=== PATIENT | male | born 1990 | race Caucasian/White ===

== ENCOUNTER 2019-10-14 10:12 | Emergency (ER) | payer MEDICAID ==
[~2019-10-14] VITALS: Ht 188 cm; Wt 79.6 kg
[2019-10-14 10:20] VITALS: BP 134/87
--- NOTE | 2019-10-14 10:45 | NUR ---
N AND OFF RIGHT TESTICULAR PAIN X 6 MONTHS HEMATURIA 2 DAYS AGO DENIES TRAUMA OR INJURY NO MEDS TAKEN, PT AWAKE ,ALERT,AFIBRILE AMBULATORY ,TESTICLE NEGATIVE FOR SWELLING OR TENDERNESS. PMH: NONE MEDS: NONE NKA
--- NOTE | 2019-10-14 11:35 | NUR ---
LABS AT BEDSIDE TAKING BLOOD SAMPLE FOR EXAMINATION.
--- NOTE | 2019-10-14 11:40 | NUR ---
pt transported to ct scan via wheelchair.
[2019-10-14 11:51] LABS: BASOPHILS # (AUTO) 0.1 K/uL (0.00-0.22); BASOPHILS % (AUTO) 1.1 % (0.0-2.0); EOSINOPHILS # (AUTO) 0.2 K/uL (0-0.4); EOSINOPHILS % (AUTO) 3.1 % (0.0-4.0); HEMATOCRIT 44.2 % (36-52); HEMOGLOBIN 15.4 g/dL (12.0-18.0); LYMPHOCYTES # (AUTO) 1.7 K/uL (2.0-11.5); LYMPHOCYTES % (AUTO) 28.5 % (20.5-51.1); MEAN CORPUSCULAR HEMOGLOBIN 30 pg (27-31); MEAN CORPUSCULAR HGB CONC 35 g/dL (33-37); MEAN CORPUSCULAR VOLUME 87.2 fL (80-94); MONOCYTES # (AUTO) 0.3 K/uL (0.8-1.0); MONOCYTES % (AUTO) 4.6 % (1.7-9.3); NEUTROPHILS # (AUTO) 3.7 K/uL (1.8-7.7); NEUTROPHILS % (AUTO) 62.7 % (42.2-75.2); PLATELET COUNT (AUTO) 202 K/uL (140-450); RED BLOOD CELL COUNT(AUTO) 5.07 MIL/uL (4.20-6.10); RED CELL DISTRIBUTION WIDTH 12.9 % (11.6-13.7)
[2019-10-14 11:51] LABS: APPEARANCE,URINE CLEAR (CLEAR); BILIRUBIN,URINE NEGATIVE (NEGATIVE); BLOOD, URINE NEGATIVE (NEGATIVE); COLOR,URINE YELLOW (YELLOW); LEUKOCYTE ESTERASE ,URINE NEGATIVE (NEGATIVE); NITRITE, URINE NEGATIVE (NEGATIVE); UGLUCOSE NEGATIVE (NEGATIVE)
--- NOTE | 2019-10-14 11:52 | NUR ---
PT BACK FROM CT SCAN VIA WHEELCHAIR.
[2019-10-14 12:26] LABS: ANION GAP 13.2 (8-16); CARBON DIOXIDE 27.1 mmol/L (21-32); POTASSIUM 4.3 mmol/L (3.5-5.1)
[2019-10-14 12:27] LABS: ALBUMIN 4.2 g/dL (3.4-5.0); TOTAL BILIRUBIN 0.5 mg/dL (0.0-1.0)
[2019-10-14 13:02] VITALS: BP 127/77
--- NOTE | 2019-10-14 13:03 | NUR ---
Patient discharged with v/s stable. Written and verbal after care instructions given and explained. Patient alert, oriented and verbalized understanding of instructions. Ambulatory with steady gait. All questions addressed prior to discharge. ID band removed. Patient advised to follow up with PMD. No Rx of given. Patient educated on indication of medication including possible reaction and side effects. Opportunity to ask questions provided and answered.
== END 2019-10-14 13:03 | disposition home or self-care (01) ==
LOC: MED 10:12
DX: R31.9 Hematuria, unspecified (principal)
CPT/HCPCS: 36415; 80053; 81003; 83690; 85025; 99284

== ENCOUNTER 2021-02-13 09:32 | Emergency (ER) | payer MEDICAID, OTHER ==
[~2021-02-13] VITALS: Ht 157.5 cm; Wt 129.3 kg
[2021-02-13 09:35] VITALS: BP 141/67
--- NOTE | 2021-02-13 09:42 | NUR ---
Patient ambulated with steady gait to bed 4.
--- NOTE | 2021-02-13 09:42 | NUR ---
pt ambulated to bed 04, Dr Lopez examining pt
--- NOTE | 2021-02-13 09:45 | NUR ---
xray bedside with pt
--- NOTE | 2021-02-13 10:07 | NUR ---
30 YO M C/O LEFT FOOT PAIN S/P TRIPPING ON A MAT YESTERDAY. PAIN 10/10, SHARP AGGRAVATED BY PUTTING WEIGHT ON FOOT. DENIES NUMBNESS OR WEAKNESS. NO MEDICATIONS TAKEN. PT STATES PAIN IS FELT ON LOWER/PLANTAR AREA OF FOOT PMH: NONE MEDS: NONE NKA
[2021-02-13] MEDS ORDERED: NAPR-54 PO (10:17)
[2021-02-13 10:24] VITALS: BP 141/67
--- NOTE | 2021-02-13 10:24 | NUR ---
Patient discharged with v/s stable. Written and verbal after care instructions given and explained. Patient alert, oriented and verbalized understanding of instructions. Ambulatory with steady gait. All questions addressed prior to discharge. ID band removed. Patient advised to follow up with PMD. Rx of NAPROXEN 500 MG PO PRN FOR PAIN given. Patient educated on indication of medication including possible reaction and side effects. Opportunity to ask questions provided and answered.
== END 2021-02-13 10:24 | disposition home or self-care (01) ==
LOC: MED 09:32
DX: M79.672 Pain in left foot (principal); Z98.890 Other specified postprocedural states
CPT/HCPCS: 73630; 99283

== ENCOUNTER 2021-10-02 09:14 | Emergency (ER) | payer OTHER ==
[~2021-10-02] VITALS: Ht 188 cm; Wt 120.2 kg
[~2021-10-02 09:14] MED LIST: NAPR-54 PO
[2021-10-02 09:22] VITALS: BP 136/78
--- NOTE | 2021-10-02 09:46 | NUR ---
ULTRASOUND AT PATIENT BEDSIDE
--- NOTE | 2021-10-02 09:52 | NUR ---
20G IV ESTABLISHED IN AC. BLOODWORK COLLECTED AND WALKED TO LAB
[2021-10-02 10:02] LABS: BASOPHILS % (AUTO) 0.9 % (0.0-2.0); EOSINOPHILS # (AUTO) 0.1 K/uL (0-0.4); EOSINOPHILS % (AUTO) 2.8 % (0.0-4.0); HEMATOCRIT 45.7 % (36-52); HEMOGLOBIN 15.9 g/dL (12.0-18.0); LYMPHOCYTES # (AUTO) 1.5 K/uL (2.0-11.5); LYMPHOCYTES % (AUTO) 31.1 % (20.5-51.1); MEAN CORPUSCULAR HEMOGLOBIN 31 pg (27-31); MEAN CORPUSCULAR HGB CONC 35 g/dL (33-37); MEAN CORPUSCULAR VOLUME 89.2 fL (80-94); MONOCYTES # (AUTO) 0.2 K/uL (0.8-1.0); MONOCYTES % (AUTO) 4.2 % (1.7-9.3); PLATELET COUNT (AUTO) 218 K/uL (140-450); RED BLOOD CELL COUNT(AUTO) 5.12 MIL/uL (4.20-6.10); RED CELL DISTRIBUTION WIDTH 13.5 % (11.6-13.7); WHITE BLOOD COUNT (AUTO) 4.9 K/uL (4.8-10.8)
[2021-10-02 10:18] LABS: ALBUMIN 4.1 g/dL (3.4-5.0); ANION GAP 11.4 (8-16); CARBON DIOXIDE 29.8 mmol/L (21-32); CREATININE 0.8 mg/dL (0.6-1.3); POTASSIUM 4.2 mmol/L (3.5-5.1); TOTAL BILIRUBIN 0.7 mg/dL (0.0-1.0)
--- NOTE | 2021-10-02 10:37 | NUR ---
31 Y/O MALE C/O ABD PAIN 5/10 RADIATES TO RIGHT FLANK X2 DAYS. DENIES FEVER/CHILLS. +N/V. BOWEL SOUNDS ARE ACTIVE IN ALL FOUR QUADRANTS, ABDOMEN SLIGHT TENDER TO TOUCH. A&OX4. PMH:DENIES NKA
[2021-10-02] MEDS ORDERED: ACET-8386 PO (11:11)
[2021-10-02 11:19] VITALS: BP 136/78
--- NOTE | 2021-10-02 11:21 | NUR ---
Patient discharged with v/s stable. Written and verbal after care instructions given and explained. Patient alert, oriented and verbalized understanding of instructions. Ambulatory with steady gait. All questions addressed prior to discharge. ID band removed. Patient advised to follow up with PMD. Rx of HYDROCODONE/ACETAMINOPHEN 5-325 given. Patient educated on indication of medication including possible reaction and side effects. Opportunity to ask questions provided and answered.
== END 2021-10-02 11:21 | disposition home or self-care (01) ==
LOC: MED 09:14
DX: R10.11 Right upper quadrant pain (principal); Z79.899 Other long term (current) drug therapy; Z98.890 Other specified postprocedural states
CPT/HCPCS: 36415; 76705; 80053; 83690; 85025; 99284; Q0092

== ENCOUNTER 2023-05-04 14:39 | Emergency (ER) | payer OTHER ==
[~2023-05-04] VITALS: Ht 188 cm; Wt 129.3 kg
[~2023-05-04 14:39] MED LIST changes: +ACET-8905 PO
[2023-05-04 15:32] VITALS: BP 97/54; PULSE 85; RESP 16; TEMP 97.7; O2SAT 97
[2023-05-04] MEDS ORDERED: HYDROcodone/APAP 10/325 MG 1 TAB TAB PO ONE (17:05)
[2023-05-04] MEDS ORDERED: ACET-10509 PO (17:56)
[2023-05-04] MEDS ORDERED: IBUP-2213 PO (17:56)
[2023-05-04 18:50] VITALS: BP 97/54; PULSE 85; RESP 16; TEMP 97.7; O2SAT 97
== END 2023-05-04 18:51 | disposition home or self-care (01) ==
LOC: MED 14:39
DX: S63.592A Other specified sprain of left wrist, initial encounter (principal); Z79.899 Other long term (current) drug therapy; X58.XXXA Exposure to other specified factors, initial encounter; Y93.89 Activity, other specified; Y92.89 Other specified places as the place of occurrence of the external cause; Y99.8 Other external cause status
CPT/HCPCS: 73110; 99283

== ENCOUNTER 2023-05-10 23:30 | Emergency (ER) | payer OTHER ==
[~2023-05-10] VITALS: Ht 188 cm; Wt 129.3 kg
[2023-05-10 23:30] VITALS: BP 109/86; PULSE 83; RESP 17; TEMP 97.6; O2SAT 97
[~2023-05-10 23:30] MED LIST changes: +ACET-10509 PO; +IBUP-2213 PO
[2023-05-11] MEDS ORDERED: NAPR-54 PO (01:37)
[2023-05-11 01:40] VITALS: BP 109/86; PULSE 83; RESP 17; TEMP 97.6; O2SAT 97
== END 2023-05-11 01:40 | disposition home or self-care (01) ==
LOC: MED 23:30
DX: S63.502A Unspecified sprain of left wrist, initial encounter (principal); M77.8 Other enthesopathies, not elsewhere classified; Z79.899 Other long term (current) drug therapy; Z98.890 Other specified postprocedural states; X58.XXXA Exposure to other specified factors, initial encounter; Y93.89 Activity, other specified; Y92.89 Other specified places as the place of occurrence of the external cause; Y99.8 Other external cause status
CPT/HCPCS: 99282

== ENCOUNTER 2024-01-28 15:51 | Emergency (ER) | payer SELFPAY ==
[~2024-01-28] VITALS: Ht 188 cm; Wt 131.5 kg
[~2024-01-28 15:51] MED LIST changes: +NAPR-337 PO; -NAPR-54 PO
[2024-01-28 16:10] VITALS: BP 162/87; PULSE 69; RESP 18; TEMP 97.5; O2SAT 97
[2024-01-28 16:44] LABS: BASOPHILS # (AUTO) 0.1 K/uL (0.00-0.22); EOSINOPHILS # (AUTO) 0.1 K/uL (0-0.4); HEMATOCRIT 50.8 % (36-52); HEMOGLOBIN 17.4 g/dL (12.0-18.0); LYMPHOCYTES # (AUTO) 1.9 K/uL (2.0-11.5); LYMPHOCYTES % (AUTO) 23.3 % (20.5-51.1); MEAN CORPUSCULAR HEMOGLOBIN 30 pg (27-31); MEAN CORPUSCULAR HGB CONC 34 g/dL (33-37); MEAN CORPUSCULAR VOLUME 86.9 fL (80-94); MONOCYTES # (AUTO) 0.4 K/uL (0.8-1.0); MONOCYTES % (AUTO) 4.8 % (1.7-9.3); NEUTROPHILS # (AUTO) 5.8 K/uL (1.8-7.7); NEUTROPHILS % (AUTO) 69.9 % (42.2-75.2); PLATELET COUNT (AUTO) 246 K/uL (140-450); RED BLOOD CELL COUNT(AUTO) 5.85 MIL/uL (4.20-6.10); RED CELL DISTRIBUTION WIDTH 13.8 % (11.6-13.7); WHITE BLOOD COUNT (AUTO) 8.3 K/uL (4.8-10.8)
[2024-01-28 17:41] LABS: ANION GAP 14.8 (8-16); CALCIUM 9.3 mg/dL (8.5-10.1); CREATININE 0.9 mg/dL (0.6-1.3); POTASSIUM 3.8 mmol/L (3.5-5.1)
[2024-01-28 19:55] VITALS: BP 138/82; PULSE 79; RESP 16; TEMP 98.1; O2SAT 98
== END 2024-01-28 19:55 | disposition home or self-care (01) ==
LOC: MED 15:51
DX: R07.9 Chest pain, unspecified (principal); E78.00 Pure hypercholesterolemia, unspecified; Z79.899 Other long term (current) drug therapy
CPT/HCPCS: 36415; 71045; 80048; 82948; 84484; 85025; 93005; 99285